=== PATIENT | male | born 1990 | race African-American/Black ===

== ENCOUNTER 2021-08-27 13:04 | Emergency (ER) | payer BC, MEDICAID ==
[2021-08-27] MEDS ORDERED: cefTRIAXone 1 GM Vial IM ONE (13:18)
--- NOTE | 2021-08-27 13:18 | EDM.PDOC ---
ED HPI GENERAL MEDICAL PROBLEM - General Chief Complaint: ENT Problem Stated Complaint: RT BOTTOM TOOTH PAIN Time Seen by Provider: 08/27/21 13:05 Source of Information: Reports: Patient History Limitations: Reports: No Limitations - History of Present Illness INITIAL COMMENTS - FREE TEXT/NARRATIVE: Emergency department with complaint of dental pain. Patient states that he has had dental pain greater than a week now however over the course the last 24 hours it has become significant. Originally he had contacted the dentist and they had stated September 13 was early seek again. Yesterday when the dental pain became significant he called emergency line and found that he can get into a dentist in [facility] tomorrow morning at 8 AM. He is going to have there in the a.m. He states that the pain and discomfort is significant today. Patient states that he does have a chipped back molar and states that that has been like that for significant amount of time and is not concerned with that as the one right in front of it that developed a little crevice in the last week and has caused increased amount of tissue swelling and tenderness. Patient currently denies any fever, nausea, vomiting, diarrhea, or abdominal discomfort. Duration: Other Location: Reports: Head Quality: Reports: Ache, Throbbing Severity: Mild Improves with: Reports: None Worsens with: Reports: None Context: Reports: Other Associated Symptoms: Reports: No Other Symptoms ED ROS GENERAL - Review of Systems Review Of Systems: Comprehensive ROS is negative, except as noted in HPI. Constitutional: Reports: No Symptoms HEENT: Reports: Dental Pain Respiratory: Reports: No Symptoms Cardiovascular: Reports: No Symptoms Endocrine: Reports: No Symptoms GI/Abdominal: Reports: No Symptoms : Reports: No Symptoms Musculoskeletal: Reports: No Symptoms Skin: Reports: No Symptoms Neurological: Reports: No Symptoms Psychiatric: Reports: No Symptoms Hematologic/Lymphatic: Reports: No Symptoms Immunologic: Reports: No Symptoms ED EXAM, GENERAL - Physical Exam Exam: See Below Exam Limited By: No Limitations General Appearance: Alert, WD/WN, No Apparent Distress, Other (patient is hyperactive and talkative in room. fidgetting and unable to sit still. ) Eye Exam: Bilateral Eye: Other (pinpoint pupils ) Throat/Mouth: Other (right lower mouth- distal molar- cracked and missing portion of tooth. no swelling, redness, or drainage noted. next proximal tooth, mild gum tissue swelling noted ) Head: Atraumatic, Normocephalic Respiratory/Chest: No Respiratory Distress, No Accessory Muscle Use, Chest Non- Tender Cardiovascular: Normal Peripheral Pulses, Regular Rate, Rhythm Neurological: Alert, Oriented, Normal Gait Psychiatric: Normal Affect, Normal Mood Skin Exam: Warm, Dry, Intact, Normal Color Departure - Departure Time of Disposition: 13:25 Disposition: Home, Self-Care 01 Condition: Good Clinical Impression: Pain, dental - Discharge Information *PRESCRIPTION DRUG MONITORING PROGRAM REVIEWED*: Not Applicable *COPY OF PRESCRIPTION DRUG MONITORING REPORT IN PATIENT LOU: Not Applicable Instructions: Dental Pain Forms: ED Department Discharge Additional Instructions: 1. rest 2. increase your water intake 3. Follow up with the dentist tomorrow as scheduled 4. Activity and diet as tolerated 5. Can use Ibuprofen and Tylenol for any fever or discomfort 6. Follow up with your PCP or return if symptoms progress or worsen 7. Education provided to you regarding your illness, probiotics, antibiotic prescribed 8. Call with any questions or concerns 9. Can use Orajel in the mouth along the gums to if needed for pain and discomfort - Assessment/Plan Assessment:: 1. dental pain Plan: 3. Medication offered to the patient- rocephin IM given 4. Education regarding splinting, activity, [id number] medications, and follow-up care provided. 5. All questions and concerns addressed with the patient prior to discharge
== END 2021-08-27 14:00 | disposition home or self-care (01) ==
LOC: VM.ED 13:04
DX: K08.89 Other specified disorders of teeth and supporting structures (principal)
CPT/HCPCS: 96372; 99282; 99283; J0696